=== PATIENT | female | born 1975 | race Caucasian/White ===

== ENCOUNTER 2018-05-12 19:48 | Inpatient (IN) | payer BC ==
[~2018-05-12] VITALS: Ht 167.6 cm; Wt 98.9 kg
[2018-05-12 19:52] VITALS: BP 137/83
[2018-05-12] MEDS ORDERED: LIORESAL 10 MG10 MG PO (20:00)
[2018-05-12] MEDS ORDERED: TRAMADOL 50 MG50 MG PO (20:13)
[2018-05-12] MEDS ORDERED: ZOFRAN ODT4 MG PO (20:13)
[2018-05-12 20:22] LABS: ABSOLUTE EOSINOPHILS 0.2 thou/uL (0.0-0.7); ABSOLUTE LYMPHOCYTES 3.1 thou/uL (0.8-5.3); ABSOLUTE MONOCYTES 0.8 thou/uL (0.0-1.2); ABSOLUTE NEUTROPHILS 4.7 thou/uL (1.6-8.1); BASOPHILS 0.4 %; HEMATOCRIT 43.6 % (37.0-47.0); HEMOGLOBIN 14.3 gm/dL (12.0-15.0); LYMPHOCYTES 34.8 %; MCH 29.8 pg (26.0-34.0); MCHC 32.9 g/dL (28.0-37.0); MCV 90.7 fL (80.0-100.0); MONOCYTES 9.1 %; NUCLEATED RBCS 0 /100WBC; PLATELET COUNT* 369 thou/uL (150-400); POLYS 53.7 %; RDW-CV 12.6 % (10.5-14.5); WBC 8.8 thou/uL (4.0-11.0)
[2018-05-12 20:27] LABS: ANION GAP 12 mmol/L (7-16); BUN 14 mg/dL (7-18); CALCIUM 9.7 mg/dL (8.5-10.1); CHLORIDE 106 mmol/L (98-107); CO2 24 mmol/L (21-32); CREATININE 0.9 mg/dL (0.6-1.3); GLUCOSE 106 mg/dL (70-99); POTASSIUM 3.4 mmol/L (3.5-5.1); SODIUM 142 mmol/L (136-145)
[2018-05-12 20:34] LABS: ALBUMIN 3.5 g/dL (3.4-5.0); ALKALINE PHOSPHATASE 97 U/L (46-116); SGOT 11 U/L (15-37); SGPT 13 U/L (30-65); TOTAL BILIRUBIN 0.4 mg/dL (<0.1-1.0); TOTAL PROTEIN 7.2 g/dL (6.4-8.2); TROPONIN-I LEVEL <0.06 ng/mL (<0.06)
[2018-05-12 20:36] LABS: URINE BILIRUBIN NEGATIVE (Negative); URINE BLOOD 3+ (Negative); URINE CLARITY CLEAR; URINE COLOR YELLOW; URINE GLUCOSE-RANDOM NEGATIVE (Negative); URINE KETONES NEGATIVE (Negative); URINE LEUKOCYTES-REFLEX NEGATIVE (Negative); URINE NITRITE-REFLEX NEGATIVE (Negative); URINE PROTEIN NEGATIVE (Negative); URINE SPECIFIC GRAVITY 1.015 (1.005-1.030); URINE UROBILINOGEN 0.2 E.U./dl (0.2-1.0)
--- NOTE | 2018-05-12 20:43 | NUR ---
FAMILY TO BEDSIDE
[2018-05-12 20:44] LABS: AMP/METHAMP Negative (Negative); BARBITURATES Negative (Negative); BENZODIAZEPINES Negative (Negative); COCAINE Negative (Negative); METHADONE Negative (Negative); OPIATES Negative (Negative); PCP Negative (Negative); THC Negative (Negative)
[2018-05-12 20:53] LABS: CASTS None Seen /LPF (None Seen); SQUAMOUS 0-3 Few /LPF (0-3)
[2018-05-12 20:54] LABS: BACTERIA-REFLEX 1-9 Few /HPF (None Seen); CRYSTALS None Seen /LPF (None Seen); URINE RBC >20 Many /HPF (0-2); URINE WBC-REFLEX 0-5 Rare /HPF (0-5)
[2018-05-12 21:02] LABS: ACETAMINOPHEN < 2 ug/mL (10-30); SALICYLATE < 2.8 mg/dL (2.8-20.0)
--- NOTE | 2018-05-12 21:47 | NUR ---
PATIENT MOVED TO ER #3
[2018-05-12 22:37] LABS: HCO3 24.7 mmol/L (22.0-26.0); PCO2 49.5 mmHg (35.0-45.0); pH 7.316 (7.340-7.450)
[2018-05-12 22:52] VITALS: BP 145/90
[2018-05-12 23:15] VITALS: BP 165/99
[2018-05-12 23:30] VITALS: BP 115/56
[2018-05-13] VITALS (16 sets, daily range): BP systolic 100–152; BP diastolic 54–88
[2018-05-13 00:48] LABS: HCO3 23.3 mmol/L (22.0-26.0)
[2018-05-13 00:53] LABS: PCO2 51.1 mmHg (35.0-45.0); PO2 300.7 mmHg (75.0-100.0); pH 7.276 (7.340-7.450)
[2018-05-13 03:25] LABS: BE -4.4 mmol/L (-2 to +3); HCO3 20.1 mmol/L (22.0-26.0); PCO2 35.1 mmHg (35.0-45.0); pH 7.375 (7.340-7.450)
[2018-05-13 03:28] LABS: PO2 169.7 mmHg (75.0-100.0)
[2018-05-13 04:26] LABS: HEMATOCRIT 44.4 % (37.0-47.0); HEMOGLOBIN 14.5 gm/dL (12.0-15.0); MCH 30.1 pg (26.0-34.0); MCHC 32.8 g/dL (28.0-37.0); MCV 91.8 fL (80.0-100.0); MPV 7.2 fl. (7.2-11.1); RBC 4.84 mil/uL (4.20-5.00); RDW-CV 12.8 % (10.5-14.5); WBC 9.9 thou/uL (4.0-11.0)
[2018-05-13 05:02] LABS: ALBUMIN 3.2 g/dL (3.4-5.0); CALCIUM 9.1 mg/dL (8.5-10.1); CREATININE 0.7 mg/dL (0.6-1.3); POTASSIUM 3.7 mmol/L (3.5-5.1); TOTAL BILIRUBIN 0.5 mg/dL (<0.1-1.0); TOTAL PROTEIN 6.9 g/dL (6.4-8.2)
--- NOTE | 2018-05-13 05:49 | NUR ---
PT ARRIVED FROM ER AT 2250. PT UNAROUSABLE RT PLACED PT ON BIPAP. NOTIFIED DR CASIANO OF CRITICAL ABG RESULTS LOW BLOOD PRESSURE AND BRADYCARDIA. OBTAINED ORDERS FOR DOPAMINE GTT RT CHANGED SETTINGS ON BIPAP AND REDREW ABG.STARTED DOPAMINE GTT AT 0259 BLOOD PRESSURE AND PULSE ELAVATED STEADILY 0500 BP 172/70 HR 80 TURNED OFF DOPAMINE. TURNED PT Q2H. WILL CONTINUE PLAN OF CARE.
--- NOTE | 2018-05-13 07:37 | NUR ---
PATIENT CARE ASSUMED AT 0700. PATIENT NON-RESPONSIVE R/T BACLOFEN OVERDOSE. PHYSICIAN AWARE. BIPAP IN PLACE AT 16/6, FIO2 40% WITH O2 SAT 100%. TRACING SINUS RHYTHM ON FLIGHT SURGEON. PER REPORT, PATIENT BRADYCARDIAC AT TIMES. BLOOD PRESSURE WNL. NO FAMILY PRESENT AT THIS TIME.
--- NOTE | 2018-05-13 08:32 | NUR ---
PATIENT NON-RESPONSIVE ON BIPAP WITH SONOROUS BREATHING. STAT ORDERS FROM DR EDGAR FOR INTUBATION. RESPORATORY AND ANESTHESIA NOTIFIED. IN THE ROOM AT THIS TIME.
--- NOTE | 2018-05-13 09:31 | NUR ---
PATIENT GIVEN 100 MG SUCCINYLCHOLINE AT 0840. COLOR CHANGED NOTED AT 0841. INTUBATED AT [address] GIBBS. ATTEMPTED TO CALL DTR IN EMERGENCY CONTACT LIST AT 0840. NO ANSWER, WENT TO VOICEMAIL. NO OTHER CONTACTS LISTED.
[2018-05-13 09:52] LABS: BE -4.7 mmol/L (-2 to +3); HCO3 20.8 mmol/L (22.0-26.0); PCO2 39.9 mmHg (35.0-45.0); PO2 120.1 mmHg (75.0-100.0); pH 7.335 (7.340-7.450)
--- NOTE | 2018-05-13 10:59 | NUR ---
Nutrition: Pt admitted for Baclofen intentional OD, SI. Intubated this morning. Hx limited. BG 140, alb 3.2. Per ICU rounds, may be intubated for 5-[address] available for nutrition recommendations if warranted. Will follow POC.
--- NOTE | 2018-05-13 11:13 | EKG ---
[place] [address] ELECTROCARDIOGRAM REPORT Name: OSORIO CRUZANCA Deepa Room: [address] ADM IN M.R.#: [id number] Admission: 05/12/18 Attend Phys: Shantelle Bush Discharge: Date of : 77 Report #: [id number] THIS REPORT FOR: //name// [facility] ED Test Date: 2018-05-12 Test Time: 19:56:28 Pat Name: MICHA CRUZ Department: Room: [facility] Gender: F Senior Mechanical Designer: KIRAN : 1975 Requested By: Deanna Martinez Order Number: [id number] MD: Favio Lozoya Measurements Intervals [place] Rate: 64 P: -1 NV: 131 QRS: 11 QRSD: 102 T: 39 QT: 412 QTc: 425 Interpretive Statements Sinus rhythm Low voltage, precordial leads No previous ECG available for comparison Electronically Signed On 05-13-2018 11:13:23 CDT by Favio Lozoya [email or web address] <ELECTRONICALLY SIGNED> By: Favio Lozoya MD, [facility] 05/13/18 1113 [id number] 55 Favio Lozoya MD, [facility] /EPI
--- NOTE | 2018-05-13 12:16 | NUR ---
CM ASSESSMENT: UNABLE TO VISIT WITH PT SHE IS INTUBATED AND SEDATED. PT HAD AN INTENTIONAL OVERDOSE ON BACLOFEN IN A SUICIDE ATTEMPT. PT LIVES BY HERSELF AND PER HER NURSE NO FAMILY IS AVAILABLE. CM TO CONTINUE TO FOLLOW
--- NOTE | 2018-05-13 12:27 | NUR ---
ATTEMPTED TO CALL PATIENT'S DAUGHTER AGAIN AT 1227 TO UPDATE ON PLAN OF CARE.
--- NOTE | 2018-05-13 15:28 | NUR ---
FATHER, KIMMY CRUZ, FROM [place] CALLED AND UPDATED ON PLAN OF CARE. GAVE CONTACT INFORMATION FOR HIMSELF AND SON.
--- NOTE | 2018-05-13 17:40 | NUR ---
PATIENT PROGRESSING TOWARDS GOALS. STABLE ON VENTILATOR. VITALS WNL. TRACES NSR TO SINUS BRADYCARDIA IN 50S AT TIMES ON CARE TEAM ASSISTANT. LOW GRADE FEVER. PATIENT STARTING TO HAVE MORE MOVEMENT, BUT NOT PURPOSEFUL. DOES HAVE JERKING MOVEMENTS AT TIMES. OPENS EYES SPONTANEOUSLY. PER POSION CONTROL, BACLOFEN HAS LONGER HALF LIFE WHEN OVERDOSED ON, ABOUT 35 HOURS, AND CAN MIMICK COMATOSE STATE/BRAIN . NS INFUSING AT 130 ML/HR IN LAC 20G IV ADEQUATELY. TURNED Q2H HOURS FOR SKIN INTEGRITY MAINTENANCE. FATHER UPDATED ON PLAN OF CARE. MULTIPLE COUSINS CALLED, BUT UNABLE TO GIVE INFORMATION TO THEM.
[2018-05-14] VITALS (26 sets, daily range): BP systolic 97–141; BP diastolic 52–89
[2018-05-14 04:24] LABS: BE -2.8 mmol/L (-2 to +3); PCO2 38.7 mmHg (35.0-45.0); PO2 105.1 mmHg (75.0-100.0); pH 7.373 (7.340-7.450)
[2018-05-14 04:36] LABS: ABSOLUTE MONOCYTES 1.2 thou/uL (0.0-1.2); ABSOLUTE NEUTROPHILS 12.6 thou/uL (1.6-8.1); BASOPHILS 0.3 %; HEMATOCRIT 42.6 % (37.0-47.0); HEMOGLOBIN 13.6 gm/dL (12.0-15.0); LYMPHOCYTES 12.4 %; MCH 29.8 pg (26.0-34.0); MONOCYTES 7.7 %; MPV 6.9 fl. (7.2-11.1); NUCLEATED RBCS 0 /100WBC; PLATELET COUNT* 271 thou/uL (150-400); POLYS 79.6 %; RBC 4.58 mil/uL (4.20-5.00); RDW-CV 12.9 % (10.5-14.5); WBC 15.8 thou/uL (4.0-11.0)
[2018-05-14 05:01] LABS: CALCIUM 9.2 mg/dL (8.5-10.1); CREATININE 0.9 mg/dL (0.6-1.3); POTASSIUM 3.7 mmol/L (3.5-5.1)
--- NOTE | 2018-05-14 08:00 | NUR ---
RN RESUMED CARE OF PATIENT THIS AM. NO APPARENT PAIN. PT ON VENTILATOR AND PROPOFOL. VSS. NO FAMILY AT BEDSIDE. PLANS FOR TODAY INCLUDE SEDATION VACATION, ORAL CARE, AND REPOSITIONING TO MAINTAIN SKIN INTEGRITY.
--- NOTE | 2018-05-14 08:57 | CON ---
[address] [address] CONSULTATION Name: ANTHONYMICHA M Room: [address] IN M.R.#: [id number] Admission: 05/12/18 Attend Phys: Shantelle Bush Discharge: Date of : 77 Report #: [id number] THIS REPORT FOR: //name// CC: NITIN physician/PCP David Harrington REASON FOR CONSULTATION: Respiratory failure. HISTORY OF PRESENT ILLNESS: The patient was intubated during my evaluation, did not participate in the history. I reviewed the medical records and discussed with RN taking care of the patient. This is a 43-year-old female patient who was admitted to the hospital on 05/12/2018 after she presented to the ER with intentional drug overdose. She had some social issues and she reported to the ER physician that she took 30 tablets of baclofen 1 hour prior to arrival to the ER. The baclofen was 10 mg, so she took a total of 300 mg of baclofen. Apparently, initially she was awake, alert and she was admitted to the ICU, then slowly she started requiring BiPAP; however, this morning she was completely unresponsive and she was intubated for airway protection. Per the record, she had a past medical history of suicidal attempt when she was 19-year-old and she reported to the ER physician, she does not take antidepressants. PAST MEDICAL HISTORY: Migraine. PAST SURGICAL HISTORY: Unobtainable. HOME MEDICATIONS: Baclofen, tramadol and Zofran. ALLERGIES: PENICILLIN. FAMILY HISTORY: Unobtainable. SOCIAL HISTORY: Unobtainable at this point. It is not clear if she drinks alcohol and smokes or abuses drugs, although her drug screen was negative. REVIEW OF SYSTEMS: Unobtainable due to the patient's condition. PHYSICAL EXAMINATION: VITAL SIGNS: Her blood pressure was ____ during my evaluation, breathing 12 times a minute on the vent, pulse rate of 66, afebrile, O2 saturation on the monitor 100% on 40% FiO2. GENERAL: Looks her stated age, intubated, not on sedation, unresponsive. HEENT: Pupil midsize, nonreactive, tears in her eyes. External ears look healthy and normal. Nasal cavity: Patent passages. Oral cavity: Moist mucous membranes with ET tube in place. NECK: No palpable lymph node. Trachea is central. CHEST: Air movement heard bilaterally on the vent. No added sounds. No wheezes, [place] [address] CONSULTATION Name: MICHA CRUZ Room: [address]#: [id number] Admission: 05/12/18 Attend Phys: Shantelle Bush Discharge: Date of : 77 Report #: [id number] HEART: S1, S2, no murmur. ABDOMEN: Soft, lax, benign, nontender. Positive bowel sounds. EXTREMITIES: Lower extremities: No edema, no calf tenderness. SKIN: Normal for age and race, no rash. NEUROLOGIC: Nonresponsive. She was intubated earlier this morning and received paralysis. She is not on continuous sedation at this point. LABORATORY DATA: Her white blood count is 9.9, hemoglobin 14.5, platelets 339. Her ABGs: She had 3 sets of ABGs, the initial 17.31____/49/59 and this was done on oxygen by nasal cannula. Then, on BiPAP 7.27/51/300 and this morning on BiPAP at 50%, 7.37/35/169. Her creatinine is 0.7 with a chloride of 117, potassium 3.7, sodium 145 and urine drug screen negative. IMPRESSION: 1. Acute hypoxic respiratory failure. 2. Encephalopathy secondary to drug overdose. 3. Intubated for airway protection. 4. Suicidal attempt. 5. Drug overdose. PLAN: At this point, the patient will be kept on the ventilator. We are waiting for the drug to wean off her system. Currently, she does not require sedation, but if she starts to wake up and fighting the vent, we can consider propofol as long as her blood pressure allows. We will do daily chest x-rays and ABGs and monitor her status. Her chest x-ray today showed some atelectasis, no definite infiltrate. ET tube in good position. I agree with the IV fluids. I will order nebulization treatment for her. Depending on the clinical course and her mental status, we will decide about the appropriate time to start the weaning of the vent and extubation process. Discussed with the nursing staff. Thank you for the consult. <ELECTRONICALLY SIGNED> By: Patience Potts MD 05/14/18 [id number] Potts MD /luis angel
--- NOTE | 2018-05-14 11:47 | NUR ---
CONTINUE TO FOLLOW, PT ON VENT. NO FAMILY IN ROOM. PER NURSING, MAY GET EXTUBATED TOMORROW. 2 AFFADAVITS ON CHART
--- NOTE | 2018-05-14 12:35 | NUR ---
WOUND CARE NOTE: CONSULT RECEIVED FOR RISK FOR WOUND. PATIENT PRESENTS WITH A LOW ALEXIS OF 11. SKIN ASSESSMENT PERFORMED, DID NOT OBSERVE ANY PRESSURE ULCER BREAKDOWN TO SACRUM, COCCYX, HEELS, SCAPULA, OR ISCHIAL TUBEROSITIES. HOWEVER, GREEN DRAINAGE NOTED ON CHUX AND ODOR NOTED. CLEANSED PATIENT, BELIEVE PATIENT MAY HAVE VAGINAL YEAST INFECTION. SHALLOW ULCERATIONS NOTED NEAR LABIA, BELIEVE THESE ARE DUE TO THE DRAINAGE/INFECTION. PATIENT'S RN AWARE. ASSISTED PATIENT'S RN WITH CLEANSING AND PLACING NEW CHUX. RECOMMEND TURN Q2 HOURS LOW AIR LOSS MATTRESS BARRIER OINTMENT BID AND PRN INCONTINENCE
--- NOTE | 2018-05-14 19:00 | NUR ---
PT UNABLE TO MOVE TOWARD GOALS. VSS. REMAINS VENTILATED. SEDATION VACATION COMPLETED THIS SHIFT AND PT DID NOT TOLERATE. BECAME VERY AGITATED AND DID NOT FOLLOW COMMANDS. PULMONOLOGY AT BEDSIDE AND STATES TO RESTART SEDATION AND TRY AGAIN TOMORROW. PROPOFOL INCREASED TO 80MCG/KG/MIN. POA INFORMATION TO OBTAINED FROM [facility]. PAPERWORK REQUESTED THIS SHIFT.
[2018-05-15] VITALS (21 sets, daily range): BP systolic 89–152; BP diastolic 45–97
[2018-05-15 04:38] LABS: ABSOLUTE BASOPHILS 0.1 thou/uL (0.0-0.2); ABSOLUTE EOSINOPHILS 0.1 thou/uL (0.0-0.7); ABSOLUTE LYMPHOCYTES 2.4 thou/uL (0.8-5.3); ABSOLUTE MONOCYTES 0.8 thou/uL (0.0-1.2); ABSOLUTE NEUTROPHILS 5.9 thou/uL (1.6-8.1); BASOPHILS 0.7 %; EOSINOPHILS 1.5 %; HEMATOCRIT 38.9 % (37.0-47.0); HEMOGLOBIN 12.6 gm/dL (12.0-15.0); LYMPHOCYTES 25.7 %; MCH 30.2 pg (26.0-34.0); MCHC 32.5 g/dL (28.0-37.0); MCV 92.8 fL (80.0-100.0); MONOCYTES 8.1 %; MPV 7.8 fl. (7.2-11.1); NUCLEATED RBCS 0 /100WBC; PLATELET COUNT* 222 thou/uL (150-400); RBC 4.19 mil/uL (4.20-5.00); RDW-CV 13.1 % (10.5-14.5); WBC 9.3 thou/uL (4.0-11.0)
[2018-05-15 05:30] LABS: ALBUMIN 2.4 g/dL (3.4-5.0); CALCIUM 8.9 mg/dL (8.5-10.1); CREATININE 0.6 mg/dL (0.6-1.3); POTASSIUM 3.7 mmol/L (3.5-5.1); TOTAL BILIRUBIN 0.3 mg/dL (<0.1-1.0); TOTAL PROTEIN 5.9 g/dL (6.4-8.2)
--- NOTE | 2018-05-15 06:32 | NUR ---
PATIENT SLOWLY PROGRESSING. REMAINS ON VENT. MAX PROPOFOL. NO ACUTE HEMODYNAMIC CHANGES OVER NIGHT. BLOOD PRESSURE ON THE LOWER END. SPOKE WITH DAOUGHTER AND SON LAST NIGHT. UPDATED ON CURRENT CARE. VOICED UNDERSTANDING. PT URINE DARK GREEN. SKIN WARM, UPPER EXTREMITIES RED. PUPILS REACTIVE. PT RECIEVED FULL BED BATH WITH LINEN CHANGE. TOLERATED WELL. SCHEDULED WEANING TRIAL THIS A.M. WILL CONTINUE TO MONITOR CLOSELY.
--- NOTE | 2018-05-15 12:11 | NUR ---
PATIENT EXTUBATED TO ROOM AIR AT 1000 STILL GROGGY. FAMILY AT BEDSIDE 1:1 ROOM CLEARED FOR SI PRECAUTIONS. RESTRAINTS DCD.
--- NOTE | 2018-05-15 15:53 | NUR ---
DR HERNANDEZ NOTIFIED OF PT SINUS TACH, AND CO CHEST PAIN. PT DENIES PAIN AT THIS TIME. ASKING FOR SON ELENI.
--- NOTE | 2018-05-15 17:40 | EKG ---
[place] [address] ELECTROCARDIOGRAM REPORT Name: ANTHONYMICHA Deepa Room: [address] ADM IN M.R.#: [id number] Admission: 05/12/18 Attend Phys: Shantelle Bush Discharge: Date of : 77 Report #: [id number] THIS REPORT FOR: //name// [facility] Test Date: 2018-05-15 Test Time: 13:34:40 Pat Name: MICHA CRUZ Department: Room: [address] Gender: F Auto Fleet Manager: : 1975 Requested By: Jamal Walters Order Number: [id number] MD: Favio Lozoya Measurements Intervals [place] Rate: 140 P: 8 IN: 137 QRS: -10 QRSD: 94 T: 184 QT: 300 QTc: 458 Interpretive Statements Sinus tachycardia Abnormal R-wave progression, late transition Abnormal lateral Q waves Repol abnrm suggests ischemia, diffuse leads Baseline wander in lead(s) II,III,aVR,aVF,V3 Compared to ECG 05/12/2018 19:56:28 Q waves now present Early repolarization now present Possible ischemia now present Sinus rate has increased Electronically Signed On 05-15-2018 17:39:58 CDT by Favio Lozoya [email or web address] <ELECTRONICALLY SIGNED> By: Favio Lozoya MD, [facility] 05/15/18 1739 1334 1334 Favio Lozoya MD, [facility] /EPI
--- NOTE | 2018-05-15 19:04 | NUR ---
PATIENT UP TO COMMODE AND CHAIR VERY IMPULSIVE. IVS INFILTRATED. AWAITING HELP
[2018-05-16] VITALS (15 sets, daily range): BP systolic 108–144; BP diastolic 69–90
[2018-05-16 04:29] LABS: ABSOLUTE EOSINOPHILS 0.1 thou/uL (0.0-0.7); ABSOLUTE LYMPHOCYTES 1.9 thou/uL (0.8-5.3); ABSOLUTE MONOCYTES 0.7 thou/uL (0.0-1.2); ABSOLUTE NEUTROPHILS 4.9 thou/uL (1.6-8.1); BASOPHILS 0.4 %; EOSINOPHILS 1.7 %; HEMATOCRIT 36.6 % (37.0-47.0); HEMOGLOBIN 12.1 gm/dL (12.0-15.0); LYMPHOCYTES 24.7 %; MCH 30.2 pg (26.0-34.0); MCHC 33.2 g/dL (28.0-37.0); MCV 90.9 fL (80.0-100.0); MONOCYTES 8.7 %; MPV 7.1 fl. (7.2-11.1); NUCLEATED RBCS 0 /100WBC; PLATELET COUNT* 268 thou/uL (150-400); POLYS 64.5 %; RBC 4.02 mil/uL (4.20-5.00); RDW-CV 12.9 % (10.5-14.5); WBC 7.6 thou/uL (4.0-11.0)
[2018-05-16 04:42] LABS: ALBUMIN 2.6 g/dL (3.4-5.0); CALCIUM 8.6 mg/dL (8.5-10.1); CREATININE 0.5 mg/dL (0.6-1.3); TOTAL BILIRUBIN 0.7 mg/dL (<0.1-1.0); TOTAL PROTEIN 6.2 g/dL (6.4-8.2)
[2018-05-16 04:48] LABS: PREALBUMIN 15.3 mg/dL (18.0-35.7)
--- NOTE | 2018-05-16 09:44 | NUR ---
RECEIVED REPORT FROM EDGAR ORELLANA. ASSESSMENT CHARTED. AFEBRILE. TELE STATUS. WILL CALL TELE PSYCH FOR EVALUATION. PT ATE BREAKFAST AND TOLERATED WELL. POTASSIUM REPLACED AND ORAL CARDIZEM GIVEN. WILL CONTINUE TO MONITOR.
--- NOTE | 2018-05-16 10:19 | NUR ---
Nutrition: follow up note. Pt extubated. Going up to tele. Regular diet ordered. Will continue to follow. Mild risk.
--- NOTE | 2018-05-16 12:07 | NUR ---
REPORT GIVEN TO EDGAR VALENCIA. ALL QUESTIONS ANSWERED. PT IS TRANSFERRING NOW BY WHEELCHAIR TO RM 224. PT HAD TELEPSYCH CONSULT AND SPOKE WITH PHYSICAN. WAITING FOR FAXED RECOMMENDATIONS FROM PSYCH PHYSICAN.
--- NOTE | 2018-05-16 12:47 | NUR ---
PT. ARRIVED TO ROOM 224. PT A/OX4, FLAT AFFECT. MONITOR PLACED TRACING SR. PT. DENIES CURRENT PAIN/SOB. ON RA. FULL ASSESSMENT COMPLETED, REFER TO CHARTING. PT. REMAINS 1:1 FOR SI CURRENTLY. ROOM MADE SI APPROPIRATE PRIOR TO TRANSFER. WILL CONTINUE WITH PLAN OF CARE.
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
--- NOTE | 2018-05-16 19:32 | NUR ---
PT. STABLE THROUGH REMAINDER OF SHIFT. UP IN ROOM WITH STBY ASSISTANCE. 2 MALE FAMILY MEMBERS VISITED THIS EVENING. ROBERT REMOVED PER PROTOCOL AT 1800. HOURLY ROUNDING COMPLETED THROUGH OUT THE DAY FOR PT. SAFETY.
[2018-05-17] VITALS: BP 130/86
[2018-05-17 04:00] VITALS: BP 116/76
[2018-05-17 05:31] LABS: ABSOLUTE EOSINOPHILS 0.2 thou/uL (0.0-0.7); ABSOLUTE LYMPHOCYTES 2.1 thou/uL (0.8-5.3); ABSOLUTE MONOCYTES 0.5 thou/uL (0.0-1.2); BASOPHILS 0.5 %; EOSINOPHILS 2.9 %; HEMATOCRIT 38.5 % (37.0-47.0); HEMOGLOBIN 12.5 gm/dL (12.0-15.0); LYMPHOCYTES 26.6 %; MCH 29.7 pg (26.0-34.0); MCHC 32.6 g/dL (28.0-37.0); MCV 91.2 fL (80.0-100.0); MONOCYTES 6.7 %; MPV 7.2 fl. (7.2-11.1); NUCLEATED RBCS 0 /100WBC; PLATELET COUNT* 285 thou/uL (150-400); POLYS 63.3 %; RBC 4.22 mil/uL (4.20-5.00); RDW-CV 12.8 % (10.5-14.5); WBC 7.9 thou/uL (4.0-11.0)
[2018-05-17 05:41] LABS: PREALBUMIN 15.8 mg/dL (18.0-35.7)
[2018-05-17 05:49] LABS: ALBUMIN 2.8 g/dL (3.4-5.0); CALCIUM 9.1 mg/dL (8.5-10.1); CREATININE 0.5 mg/dL (0.6-1.3); POTASSIUM 3.4 mmol/L (3.5-5.1); TOTAL BILIRUBIN 0.5 mg/dL (<0.1-1.0); TOTAL PROTEIN 6.4 g/dL (6.4-8.2)
[2018-05-17 08:00] VITALS: BP 130/83
--- NOTE | 2018-05-17 08:14 | NUR ---
RECEIVED REPORT AND ASSUMED CARE AT 1900. VSS. CARDIAC MONITORING IN PLACE. PT DENIES ANY COMPLAINTS OF PAIN. ASSESSMENT COMPLETED CHARTED. PT STATES SHE DOES NOT HAVE THOUGHTS OF HURTING HERSELF AT THIS TIME. MEDICATION ADMIN PER EMAR. HOURLY ROUNDING COMPLETED, ALL NEEDS MET. PT HAS 1:1 SITTER FOR SI. BED LOCKED IN LOWEST POSITION, CALL LIGHT WITHIN REACH. NURSING WILL CONTINUE TO MONITOR
[2018-05-17 11:57] VITALS: BP 135/83
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
[2018-05-17 16:05] VITALS: BP 117/77
--- NOTE | 2018-05-17 16:27 | NUR ---
TWO DELISA/JOSIANE DECLINED PT D/T MEDICAL NEEDS CALL TO [facility], THEY ARE FULL CALL TO [facility], FAXED REFERRAL [phone] CALL TO [facility], FAXED REFERRAL [phone] FACILITIES TO CALL BACK TO NURSING UNIT WITH DECISION
[2018-05-17] MEDS ORDERED: PROTONIX40 M1 PO (17:44)
[2018-05-17] MEDS ORDERED: LEVAQUIN 750 M750 MG PO (17:44)
[2018-05-17] MEDS ORDERED: CARDIZEM60 MG PO (17:45)
[2018-05-17 17:46] VITALS: BP 117/77
== END 2018-05-17 18:32 | DRG 917 ==
LOC: M.ERS 19:48 → M.TBA-ER 21:51 → M.ICU 21:51 → M.2W 05-16 12:30
PROVIDERS: Emergency Medicine; Internal Medicine; ADMIT Internal Medicine
PROC: 5A09357 Assistance with Respiratory Ventilation, Less than 24 Consecutive Hours, Continuous Positive Airway Pressure (ICD-10-PCS; principal; 2018-05-12)
PROC: 0BH17EZ Insertion of Endotracheal Airway into Trachea, Via Natural or Artificial Opening (ICD-10-PCS; 2018-05-13)
PROC: 5A1945Z Respiratory Ventilation, 24-96 Consecutive Hours (ICD-10-PCS; 2018-05-13)
DX: T42.8X2A Poisoning by antiparkinsonism drugs and other central muscle-tone depressants, intentional self-harm, initial encounter (principal); G92 Toxic encephalopathy; J96.01 Acute respiratory failure with hypoxia; G43.909 Migraine, unspecified, not intractable, without status migrainosus; F17.210 Nicotine dependence, cigarettes, uncomplicated; J69.0 Pneumonitis due to inhalation of food and vomit; R00.0 Tachycardia, unspecified; Z88.0 Allergy status to penicillin; Y92.89 Other specified places as the place of occurrence of the external cause; Z79.899 Other long term (current) drug therapy; Z79.2 Long term (current) use of antibiotics